=== PATIENT | male | born 1985 | race African-American/Black ===

== ENCOUNTER 2016-11-06 04:13 | Emergency (ER) | payer OTHER ==
--- NOTE | ~2016-11-06 | CR117 ---
[facility] A Service of [facility] [place] RADIOLOGY TEXT RESULTS PATIENT: PRINCE CHANCE LOCATION: [place] : [birth year] UNIT #: [id number] AGE: [address]: Kevyn Baldwin MD SEX: M ORDER DR: [id number] [facility]. [place], [place] [address] [id number] MR#: [id number] Acc #: [id number] NAME: PRINCE CHANCE : 1985 SEX: M STUDY DATE/TIME: 11/06/2016 3:43 UNIT: [facility] ROOM: STUDY DESCRIPTION: CR Finger 2 View Thumb Rt Attending Physician: Kevyn Baldwin M.D. Ordering Physician: Kevyn Baldwin M.D. Primary Care Physician: Primary Care Physician No MEDICAL IMAGING REPORT This report is preliminary unless electronic signature is present EXAM Right thumb INDICATION Pain, swelling right thumb for 2 weeks. FINDINGS There is no evidence of fracture, dislocation, or radiopaque foreign body. IMPRESSION Normal right thumb. Dictated by... Faraz Brown M.D. THIS IS AN ELECTRONICALLY VERIFIED REPORT Faraz Brown M.D. at 11/06/2016 1:15 PM VENUS/senia TD: 11/06/2016 06:15 JOB #: [id number] MEDICAL IMAGING REPORT Page 1 of 1 COPY
--- NOTE | ~2016-11-06 | CT101 ---
[facility] A Service [facility] RADIOLOGY TEXT RESULTS PATIENT: PRINCE CHANCE LOCATION: [place] : [birth year] UNIT #: [id number] AGE: [address]: Kevyn Baldwin MD SEX: M ORDER DR: [id number] [facility]. [place], [place] [address] [id number] MR#: [id number] Acc #: [id number] NAME: PRINCE CHANCE : 1985 SEX: M STUDY DATE/TIME: 11/06/2016 3:32 UNIT: [facility] ROOM: STUDY DESCRIPTION: CT Maxillofacial Area Wo Cont Attending Physician: Kevyn Baldwin M.D. Ordering Physician: Kevyn Baldwin M.D. Primary Care Physician: Primary Care Physician No MEDICAL IMAGING REPORT This report is preliminary unless electronic signature is present EXAM CT scan of the facial bones without contrast INDICATION Mandible pain right side, pain for 2 weeks. COMPARISON None. TECHNIQUE Axial 2 mm images were obtained through the facial bones. This CT examination was performed with one or more of the following radiation dose reduction techniques: automatic exposure control, adjustment of mA and/or kV according to patient size, and iterative reconstruction. FINDINGS There is no facial fracture identified. There is a large cavity seen in the patient's posterior molar in the right side of the jaw. The cavity is on the back margin. Soft tissues are normal. IMPRESSION There is a deep cavity involving the posterior surface of the posterior molar in the right mandible. Otherwise, the study is normal. Dictated by... Faraz Brown M.D. THIS IS AN ELECTRONICALLY VERIFIED REPORT Faraz Brown M.D. at 11/06/2016 1:15 PM VENUS/senia TD: 11/06/2016 06:12 [facility] A Service [facility] RADIOLOGY TEXT RESULTS PATIENT: PRINCE CHANCE LOCATION: [place] : [birth year] UNIT #: [id number] AGE: [address]: Kevyn Baldwin MD SEX: M ORDER DR: JOB #: [id number] MEDICAL IMAGING REPORT Page 1 of 1 COPY
[~2016-11-06 04:13] MED LIST: ALPRAZOLAM PO; CIPRO; CIPRO PO; FAMOTIDINE PO; FLEXERIL PO; FLOMAX0.4 M1 DOB; HYDROCODON-ACE1 EAC9 PO; IBUPROFEN PO; KETOPROFEN PO; LEVAQUIN750 MG PO; LORTAB 5/500 TA1 TA1 PO; LORTAB 7.5-5001 TAB PO; NAPROXEN PO; OMEPRAZOLE40 M1 PO; PHENERGAN PO; PHENERGAN25 MG PO; PROTONIX PO; PYRIDIUM PO; VICODIN PO
== END 2016-11-06 04:47 | disposition home or self-care (01) ==
LOC: CED 04:13
DX: S60.321A Blister (nonthermal) of right thumb, initial encounter (principal); F17.200 Nicotine dependence, unspecified, uncomplicated; Z88.0 Allergy status to penicillin; Z88.1 Allergy status to other antibiotic agents; X58.XXXA Exposure to other specified factors, initial encounter; Y92.410 Unspecified street and highway as the place of occurrence of the external cause
CPT/HCPCS: 29125; 70486; 73140; 99284